=== PATIENT | female | born 1960 | race Caucasian/White ===

== ENCOUNTER 2016-10-08 21:49 | Inpatient (IN) | payer BC ==
[2016-10-08] MEDS ORDERED: NOREPINEPHRINE BITARTRATE INJ/PF 4 MG/4 ML SDV IV ONE (21:56)
[2016-10-08] MEDS ORDERED: NORMAL SALINE 1000 ML 2,000 ML IV ONE (22:17)
[2016-10-08 22:47] LABS: ABSOLUTE EOSINOPHILS # (AUTO) 0.1 10^3/uL (0.0-0.6); ABSOLUTE LYMPHOCYTES (AUTO) 1.5 10^3/uL (0.5-4.7); ABSOLUTE MONOCYTES (AUTO) 0.6 10^3/uL (0.1-1.4); ABSOLUTE NEUT (AUTO) 6.5 10^3/uL (1.7-8.2); BASOPHILS % (AUTO) 0.4 % (0-2); EOSINOPHILS % (AUTO) 1.4 % (0-6); HEMATOCRIT 30.4 % (36.0-47.0); HEMOGLOBIN 10.2 g/dL (12.0-15.5); HGB HCT DIFFERENCE 0.2; LYMPHOCYTES % (AUTO) 17.6 % (13-45); MEAN CORPUSCULAR HEMOGLOBIN 27.9 pg (27.0-33.4); MEAN CORPUSCULAR HGB CONC 33.7 g/dL (32.0-36.0); MEAN CORPUSCULAR VOLUME 83 fl (80-97); MONOCYTES % (AUTO) 7.1 % (3-13); RED BLOOD COUNT 3.67 10^6/uL (3.72-5.28); RED CELL DISTRIBUTION WIDTH 13.6 % (11.5-14.0); SEGMENTED NEUTROPHILS % (AUTO) 73.5 % (42-78); VENOUS BLOOD BASE EXCESS -4.6 mmol/L; VENOUS BLOOD HCO3 21.1 mmol/L (20-32); VENOUS BLOOD PCO2 41.6 mmHg (35-63); VENOUS BLOOD PH 7.32 (7.30-7.42); WHITE BLOOD COUNT 8.8 10^3/uL (4.0-10.5)
[2016-10-08] MEDS ORDERED: MIDAZOLAM 2 MG/2 ML INJ IV ONE (22:47)
--- NOTE | 2016-10-08 22:47 | ER Document Report ---
ED General - General Stated Complaint: POSSIBLE OVERDOSE Cannot obtain history due to: Intoxicated, Unstable vital signs, Altered mental status Notes: Patient is a 55-year-old female with past medical history of multiple psychiatric illnesses who presents by EMS after apparently overdosing on multiple of her medications. No history can be obtained beyond EMS stating that patient probably told her family that she took "4 times as much of her medication" that she was supposed to take. Was noted to be acting in an unusual fashion so EMS was contacted. No additional meaningful history can be obtained at time of arrival is patient is hypotensive and unable to provide meaningful answers secondary to encephalopathy. TRAVEL OUTSIDE OF THE [place] IN LAST 30 DAYS: No - Related Data Allergies/Adverse Reactions: aspirin Allergy (Verified 10/09/16 02:41) Penicillins Allergy (Verified 10/09/16 02:41) Past Medical History - General Information source: Emergency Med Personnel - Social History Smoking Status: Unknown if Ever Smoked Frequency of alcohol use: None Drug Abuse: None Lives with: Family Family History: Reviewed & Not Pertinent Review of Systems - Review of Systems -: Yes ROS unobtainable due to patient's medical condition Physical Exam - Vital signs Vitals: Temp Pulse Resp BP Pulse Ox 96.0 F L 65 12 95/79 L 99 10/08/16 21:50 10/08/16 21:50 10/08/16 21:50 10/08/16 21:50 10/08/16 21:50 Interpretation: Hypotensive Notes: PHYSICAL EXAMINATION: GENERAL: Disheveled, appears older than stated age. Somnolent. GCS 9 HEAD: Atraumatic, normocephalic. EYES: Pupils equal round and reactive to light, extraocular movements intact, sclera anicteric, conjunctiva are normal. ENT: nares patent, oropharynx clear without exudates. Dry mucous membranes NECK: Normal range of motion, supple without lymphadenopathy LUNGS: Breath sounds clear to auscultation bilaterally and equal. No wheezes rales or rhonchi. HEART: Regular rate and rhythm without murmurs ABDOMEN: Soft, nontender, normoactive bowel sounds. No guarding, no rebound. No masses appreciated. EXTREMITIES: no pitting or edema. No cyanosis. NEUROLOGICAL: Lethargic but does wake easily to sternal rub. No focal neurological deficits. Moves all extremities spontaneously and on command. PSYCH: Lethargic, no meaningful answers to questions. SKIN: Warm, Dry, normal turgor, no rashes or lesions noted. Course - Re-evaluation Re-evalutation: 10/08/16 22:00 Patient presents altered but does respond to noxious stimuli in all extremities and does speak. She is protecting her airway. She is initially hypotensive systolics in the upper 90s. She has no additional physical exam findings. No response to 2 mg of IV Narcan. She has multiple prescription bottles with her and it appears that she has had a polysubstance overdose. Initial EKG shows a mild QT prolongation but is otherwise unremarkable. Patient had 1 plan axis at time of arrival. Very difficult to find additional IV access so a left external jugular was placed by me. She now has 2 points of 18-gauge access. Providing a 2 L fluid bolus for her mild hypotension. No indication for taking her airway at this time. She does not yet require norepinephrine. A pill count shows the patient likely did not ingest a significant amount of propranolol which should be my primary concern. She has more pills she should if she was taking them as directed but it is still uncertain exactly how much she actually took. She will require frequent reassessments given her hypotension, altered mental status, and undifferentiated toxicologic ingestion 10/08/16 22:47 Patient is much more awake at this time although continues to be confused, combative. She is fighting against nursing staff and requiring soft restraints. A small dose of Versed will be given is safe given the patient's blood pressures are now running in the low 100s systolic. 10/08/16 23:22 Patient continues to be agitated, combative, requiring soft restraints to prevent her from pulling off IVs and her Schneider catheter. Continues to protect her airway. 5 mg of IV Versed has been administered as her systolic blood pressures remain in the 100s. Her laboratories are demonstrating significant hypo-ketonemia and hypocalcemia. Will begin magnesium, potassium, and calcium gluconate. 10/09/16 00:33 Patient continues to be agitated, she's been given a total 4 mg of IV haloperidol. Blood pressures continue to be stable range in the low 1 teens. She is not tachycardic. Will repeat an EKG. 10/09/16 01:03 Patient continues to be agitated. Will give another 5 mg of IV Valium. Repeat Tylenol level pending at 2 AM. I have discussed this case with Dr. Yuan who is the admitting hospitalist has agreed to accept the patient in admission at this time. - Vital Signs Vital signs: Temp Pulse Resp BP Pulse Ox 94.4 F L 69 12 107/69 99 10/09/16 03:01 10/08/16 22:02 10/08/16 22:02 10/09/16 03:01 10/09/16 03:01 - Laboratory Result Diagrams: 10/08/16 22:30 10/09/16 01:55 Laboratory results interpreted by me: 10/08/16 10/08/16 10/08/16 22:20 22:30 22:30 RBC 3.67 L Hgb 10.2 L Hct 30.4 L Potassium 2.8 L* Chloride 108 H Carbon Dioxide 19 L Glucose Lactic Acid Calcium 6.7 L* Magnesium Total Protein 4.7 L Albumin 2.7 L Urine Protein 30 H Urine Blood MODERATE H Urine Bilirubin SMALL H Ur Leukocyte Esterase TRACE H Salicylates < 1.0 L 10/08/16 10/08/16 10/09/16 22:30 22:30 01:55 RBC Hgb Hct Potassium 2.9 L* Chloride 111 H Carbon Dioxide 19 L Glucose 154 H Lactic Acid < 0.5 L Calcium 8.2 L Magnesium 1.5 L Total Protein Albumin 2.6 L Urine Protein Urine Blood Urine Bilirubin Ur Leukocyte Esterase Salicylates - EKG Interpretation by Me Additional EKG results interpreted by me: 10/09/16 03:29 Normal sinus rhythm. Rate 65. No ST elevations or depressions. QTC prolonged at 508. Critical Care Note - Critical Care Note Total time excluding time spent on procedures (mins): 45 Comments: Critical care time spent obtaining history from patient or surrogate, discussions with consultants, development of treatment plan with patient or surrogate, evaluation of patient's response to treatment, examination of patient , ordering and performing treatments and interventions, ordering and review of laboratory studies, re-evaluation of patient's condition, ordering and review of radiographic studies and review of old charts Discharge - Discharge Clinical Impression: Encephalopathy acute, Polysubstance overdose Altered mental status Qualifiers: Altered mental status type: unspecified Qualified Code(s): R41.82 - Altered mental status, unspecified Condition: Critical Disposition: ADMITTED INPATIENT Admitting Provider: Jeevan Yuan Unit Admitted: ICU
[2016-10-08] MEDS ORDERED: MIDAZOLAM 2 MG/2 ML INJ ONE (22:49)
[2016-10-08 22:50] LABS: APPEARANCE,URINE CLOUDY; BILIRUBIN,URINE SMALL (NEGATIVE); GLUCOSE, URINE NEGATIVE (NEGATIVE); KETONES,URINE NEGATIVE (NEGATIVE); LEUKOCYTE ESTERASE,URINE TRACE (NEGATIVE); NITRITE,URINE NEGATIVE (NEGATIVE); PROTEIN,URINE 30 mg/dL (NEGATIVE); URINE SPECIFIC GRAVITY 1.025; UROBILINOGEN,URINE NEGATIVE mg/dL (<2.0)
[2016-10-08 22:53] LABS: URINE BARBITURATES SCREEN NEGATIVE; URINE METHADONE SCREEN NEGATIVE; URINE OPIATES LOW NEGATIVE; URINE PHENCYCLIDINE SCREEN NEGATIVE
[2016-10-08 23:06] LABS: ALANINE AMINOTRANSFERASE 30 U/L (9-52); ALBUMIN 2.7 g/dL (3.5-5.0); ALKALINE PHOSPHATASE 75 U/L (38-126); ANION GAP 11 (5-19); ASPARTATE AMINO TRANSFERASE 15 U/L (14-36); BILIRUBIN,DIRECT 0.1 mg/dL (0.0-0.4); BILIRUBIN,TOTAL 0.4 mg/dL (0.2-1.3); BLOOD UREA NITROGEN 9 mg/dL (7-20); CARBON DIOXIDE 19 mmol/L (22-30); CHLORIDE 108 mmol/L (98-107); CREATININE RESULT 0.75 mg/dL (0.52-1.25); GLUCOSE 101 mg/dL (75-110); SODIUM 137.6 mmol/L (137-145); TOTAL PROTEIN 4.7 g/dL (6.3-8.2)
[2016-10-08 23:11] LABS: ALCOHOL < 10 mg/dL (NONE DETECTED)
[2016-10-08 23:13] LABS: CALCIUM 6.7 mg/dL (8.4-10.2)
[2016-10-08 23:14] LABS: POTASSIUM 2.8 mmol/L (3.6-5.0)
[2016-10-08] MEDS ORDERED: DIAZEPAM INJ 10 MG/2 ML DISP.SYRIN ONE (23:18)
[2016-10-08] MEDS ORDERED: CALCIUM GLUCONATE 1000 MG/10 ML INJ IV ONE (23:21)
[2016-10-08] MEDS ORDERED: DIAZEPAM INJ 10 MG/2 ML DISP.SYRIN IV ONE (23:22)
[2016-10-08] MEDS ORDERED: DEXTROSE 5%-LACTATED RINGERS 1,000 ML IV ONE (23:23)
[2016-10-08] MEDS ORDERED: HALOPERIDOL LACTATE INJ 5 MG/1 ML VIAL ONE (23:28)
[2016-10-09] MEDS: POTASSI CL 20 MEQ/50 ML RIDER 50 ML IV SCH ×3 (00:01→04:31)
[2016-10-09] MEDS: MAGNESIUM SULFATE/D5W 100 ML IV SCH ×2 (00:14→01:31)
[2016-10-09] MEDS ORDERED: HALOPERIDOL LACTATE INJ 5 MG/1 ML VIAL ONE (00:17)
[2016-10-09] MEDS ORDERED: DIAZEPAM INJ 10 MG/2 ML DISP.SYRIN IV ONE (01:02)
[2016-10-09 02:20] LABS: ALBUMIN 2.6 g/dL (3.5-5.0); ANION GAP 9 (5-19); BLOOD UREA NITROGEN 9 mg/dL (7-20); CALCIUM 8.2 mg/dL (8.4-10.2); CARBON DIOXIDE 19 mmol/L (22-30); CHLORIDE 111 mmol/L (98-107); CREATINE KINASE 62 U/L (30-135); CREATININE RESULT 0.64 mg/dL (0.52-1.25); GLUCOSE 154 mg/dL (75-110); MAGNESIUM 2.2 mg/dL (1.6-2.3); SODIUM 138.8 mmol/L (137-145)
[2016-10-09 02:22] LABS: POTASSIUM 2.9 mmol/L (3.6-5.0)
[2016-10-09] MEDS ORDERED: RINGERS SOLUTION,LACTATED 1,000 ML IV ONE (02:29)
[2016-10-09 02:33] LABS: CREATINE KINASE MB < 0.22 ng/mL (<4.55); TROPONIN I < 0.012 ng/mL
[2016-10-09] MEDS ORDERED: DEXTROSE 40% GEL 15 GM TUBE PO PRN ×2 (02:33)
[2016-10-09] MEDS ORDERED: GLUCAGON,HUMAN RECOMB 1 MG INJ SUBCUT PRN (02:33)
[2016-10-09] MEDS ORDERED: DEXTROSE 50%-WATER 25 GM/50 ML DISP.SYRIN IV PRN ×2 (02:33)
[2016-10-09] MEDS ORDERED: POTASSI CL 20 MEQ/50 ML RIDER 20 MEQ/50 ML RTUPB IV ONE (03:00)
--- NOTE | 2016-10-09 03:05 | PDOC H&P ---
History of Present Illness Admission Date/PCP: 10/09/16 02:07 PCP ?? Patient complains of: possible OD History of Present Illness: YUE CHANDLER is a 55 year old female with reported underlying schizophrenia who presents to the emergency room for evaluation of above complaint. Patient has been discussed with emergency room physician who evaluated the patient. Patient is quite somnolent, likely from multiple medications given earlier for agitation, and is able to provide no history whatsoever in terms of acute or chronic events, review of systems, personal habits, family history, etc. No friends or family are present. No Old inpatient records available for review. Approximately 9 PM on the , according to ER physician and nursing staff discussion with EMS, patient reportedly told family that she took "4 times" as much of her home medications as she should. EMS was called. Was given 0.4 mg of intravenous Narcan by EMS, and subsequently 2 mg of IV Narcan by emergency room physician, with little if any effect either time. Multiple prescription bottles were examined, according to the emergency room physician, with no obvious evidence of overdose of these medications after pill count. She was initially fairly somnolent, and somewhat hypo-tensive, with blood pressure in the low to upper 90s. Became more awake and somewhat agitated after external jugular IV line was inserted and patient was given IV fluid. Has since been quite agitated intermittently, requiring soft restraints along with medications. Short time ago, her emergency room nurse, Derek, stated that briefly came to the emergency room and made a comment that patient "does this all the time." even reportedly asked if her potassium and calcium were low. Reportedly some suspicion on his part for possible suicide attempt. He stayed only briefly in the emergency room, and was not present during my time there. No reported history of fever, either prior to emergency room arrival, or since. . Laboratory results are listed in [employer] and are reviewed. X-ray pending. EKG reviewed. No old EKG available for comparison. Social history/personal habits: . Reportedly has a child. No further information available this point in time. Allergies/adverse reactions are listed in [employer] and are reviewed. Home medications Home medications initially autopopulated into [email or web address] may not accurately reflect patient's true medications, dosages, and/or frequencies. computed tomography technologist to reconcile medications. Home prescriptions include propranolol and Effexor. Other medications also. Unfortunately, patient obviously unable to provide any information concerning medications/dosages/frequencies. REVIEW OF SYSTEMS: See history and present illness.No further information available this point in time. PHYSICAL EXAMINATION: Neither height nor weight are recorded on the chart. Temperature not recorded on the chart; skin feels normothermic. Blood pressure 95/59, with patient having received 3 L of crystalloid, along with IV fluid during infusion of 1 potassium rider, 2 magnesium riders, and 3 calcium riders. Pulse 65 and regular. 96% saturation on 4 L oxygen per nasal cannula. Respirations are 12 and unlabored. Obese somewhat chronically ill-appearing female who nevertheless appears approximately her stated age. Asleep, but does open eyes slightly when her name is called in a slightly raised voice. However, does not become any more alert, and quickly falls back asleep. Maintaining her airway well. Skin is warm and dry. No grossly obvious evidence of rash in areas of skin examined. No subcutaneous nodules palpated. ENT: Hearing difficult to evaluate due to her current status. No Rowland sign. Eyes: No scleral icterus. Pupils equal and reactive to light at 4 mm. Bruning conjunctivae. No raccoon eyes. Neck is nontender to gentle palpation. Midline trachea. No palpable thyroid nodule mass enlargement or tenderness. Lymphatic: No palpable cervical or clavicular nodes. Neck and lymphatic exams limited by patient body habitus. Psychiatric: Not able to be adequately evaluated due to her current status. Lungs: Auscultation reveals equal breath sounds bilaterally. No use of accessory respiratory muscles. Mild brief expiratory wheezing on the right; breath sounds are clear on the left. Cardiovascular: Heart regular rate and rhythm, without gallop murmur or rub. No carotid or abdominal aortic bruits. No ankle or pedal edema. palpable dorsalis pedis pulses. Abdomen: soft, somewhat obese, nontender with positive bowel sounds. Unable to adequately evaluate abdomen for masses or organomegaly due to body habitus. Extremities: Upper and lower extremities are warm and dry. No extremity tenderness to compression. No grossly obvious visual evidence of extremity swelling. Gentle manipulation of upper and lower extremities fails to reveal any obvious evidence of injury or instability to involved major joints, although range of motion is limited by soft restraints in place. Palpation of cranium, clavicles, thorax, upper and lower extremities, and pelvis fails to reveal any obvious evidence of injury or instability. Neurologic: Patellar reflexes absent. Absent Babinski. Light touch can't be adequately evaluated due to her current status.. No nystagmus. No rigidity. No ankle clonus. Does slightly marketing clerk fingers symmetrically and symmetrically slightly move toes upon request. Past Medical History Past Medical History: Past medical history extremely limited due to her current status. See history and present illness. Psychiatric Medical History: Reports: Other - Reported schizophrenia Past Surgical History Past Surgical History: Uncertain. Social History Information Source: Emergency Med Personnel, [facility] Records Smoking Status: Unknown if Ever Smoked - Advance Directive Resuscitation Status: Full Code Surrogate healthcare decision maker:: Uncertain; likely her . Family History Parental Family History Reviewed: No - no information available this point in time. Children Family History Reviewed: No - no information available this point in time. Sibling(s) Family History Reviewed.: No - no information available this point in time. Medication/Allergy Home Medications: Divalproex Sodium [Divalproex Sodium ER] 1,000 mg PO QPM 10/09/16 Fluoxetine HCl [Prozac 20 mg Capsule] 60 mg PO DAILY 10/09/16 [place]-3 Fatty Acids/Fish Oil [Fish Oil 1,000 mg Capsule] 1 each PO BID 10/09/16 Propranolol HCl [Inderal 40 mg Tablet] 40 mg PO Q12 10/09/16 Quetiapine Fumarate [Seroquel] 200 mg PO DAILY 10/09/16 Quetiapine Fumarate [Seroquel] 600 mg PO QHS 10/09/16 Ranitidine HCl [Zantac 150 mg Tablet] 150 mg PO BIDP PRN 10/09/16 Venlafaxine HCl [Effexor] 100 mg PO DAILY 10/09/16 Venlafaxine HCl [Effexor] 200 mg PO QHS 10/09/16 Ciprofloxacin HCl [Cipro 500 mg Tablet] 500 mg PO BID #22 tablet 10/11/16 Clindamycin HCl 300 mg PO Q6H #44 capsule 10/11/16 Allergies/Adverse Reactions: aspirin Allergy (Verified 10/09/16 02:41) Penicillins Allergy (Verified 10/09/16 02:41) Assessment & Plan - Diagnosis (1) Abnormal urinalysis Is this a current diagnosis for this admission?: YesPlan: Blood and urine cultures. Will forego antibiotics at this point in time. (2) Anemia Qualifiers: Anemia type: unspecified type Qualified Code(s): D64.9 - Anemia, unspecified Is this a current diagnosis for this admission?: YesPlan: Follow-up CBC with differential. No need for transfusion at present time. (3) Encephalopathy acute Is this a current diagnosis for this admission?: YesPlan: No specific etiology available this point in time, but suspect probably polysubstance overdose/abuse. Portable chest x-ray. CT scan of brain without contrast. Suicide precautions. Psychiatric consult. Intensive care unit admission. Knee high SCDs for DVT prophylaxis, [along with subcutaneous Lovenox . Time spent in evaluation and management of patient: 53 minutes. (4) Hypocalcemia Is this a current diagnosis for this admission?: YesPlan: Replacement as needed and follow-up chemistry. (5) Hypokalemia Is this a current diagnosis for this admission?: YesPlan: Replacement as needed and follow-up chemistry. (6) Hypomagnesemia Is this a current diagnosis for this admission?: YesPlan: Replacement as needed and follow-up chemistry. (7) Hypotension Qualifiers: Hypotension type: unspecified hypotension type Qualified Code(s): I95.9 - Hypotension, unspecified Is this a current diagnosis for this admission?: YesPlan: Perhaps due in part to her propranolol. Continue IV fluids. ICU admission with close monitoring. (8) Polysubstance overdose Qualifiers: Encounter type: initial encounter Injury intent: undetermined intent Qualified Code(s): T50.904A - Poisoning by unspecified drugs, medicaments and biological substances, undetermined, initial encounter Is this a current diagnosis for this admission?: YesPlan: Suspected, with reported suspicion by of suicidal attempt. (9) Schizophrenia Qualifiers: Schizophrenia type: unspecified Qualified Code(s): F20.9 - Schizophrenia, unspecified Is this a current diagnosis for this admission?: YesPlan: Reported. - Inpatient Certification Based on my medical assessment, after consideration of the patient's comorbidities, presenting symptoms, or acuity I expect that the services needed warrant INPATIENT care.: Yes I certify that my determination is in accordance with my understanding of Medicare's requirements for reasonable and necessary INPATIENT services [42 CFR 412.3e].: Yes Medical Necessity: Need Close Monitoring Due to Risk of Patient Decompensation, Need For IV Fluids, Need For Continuous Telemetry Monitoring, Risk of Diagnosis Which Will Require Inpatient Eval/Care/Monitoring Post Hospital Care: D/C or Transfer Summary
[2016-10-09] MEDS ORDERED: HALOPERIDOL LACTATE INJ 5 MG/1 ML VIAL IV PRN (04:04)
[2016-10-09] MEDS: POTASSI CL 20 MEQ/NS 1L 1,000 ML IV PRN ×4 (04:30→21:16)
[2016-10-09] MEDS: ACETAMINOPHEN 650 MG SUPP.RECT PR PRN (05:17)
[2016-10-09 06:37] LABS: ABSOLUTE LYMPHOCYTES (AUTO) 1.5 10^3/uL (0.5-4.7); ABSOLUTE MONOCYTES (AUTO) 0.4 10^3/uL (0.1-1.4); ABSOLUTE NEUT (AUTO) 4.7 10^3/uL (1.7-8.2); BASOPHILS % (AUTO) 0.3 % (0-2); EOSINOPHILS % (AUTO) 0.5 % (0-6); HEMATOCRIT 30.4 % (36.0-47.0); HEMOGLOBIN 10.5 g/dL (12.0-15.5); HGB HCT DIFFERENCE 1.1; LYMPHOCYTES % (AUTO) 22.2 % (13-45); MEAN CORPUSCULAR HEMOGLOBIN 28.5 pg (27.0-33.4); MEAN CORPUSCULAR HGB CONC 34.5 g/dL (32.0-36.0); MEAN CORPUSCULAR VOLUME 83 fl (80-97); MONOCYTES % (AUTO) 5.4 % (3-13); RED BLOOD COUNT 3.68 10^6/uL (3.72-5.28); RED CELL DISTRIBUTION WIDTH 13.8 % (11.5-14.0); SEGMENTED NEUTROPHILS % (AUTO) 71.6 % (42-78); WHITE BLOOD COUNT 6.5 10^3/uL (4.0-10.5)
[2016-10-09 06:55] LABS: ANION GAP 9 (5-19); BLOOD UREA NITROGEN 6 mg/dL (7-20); CALCIUM 8.1 mg/dL (8.4-10.2); CARBON DIOXIDE 22 mmol/L (22-30); CHLORIDE 117 mmol/L (98-107); CREATININE RESULT 0.64 mg/dL (0.52-1.25); GLUCOSE 111 mg/dL (75-110); POTASSIUM 3.8 mmol/L (3.6-5.0)
[2016-10-09] MEDS: ENOXAPARIN SODIUM INJ 40 MG/0.4 ML DISP.SYRIN SUBCUT SCH (08:14)
[2016-10-09] MEDS ORDERED: IMIPENEM/CILASTATIN SODIUM INJ 500 MG VIAL IV SCH (08:15)
[2016-10-09] MEDS: IMIPENEM/CILASTATIN SODIUM 500 MG in NORMAL SALINE 100 ML IV SCH ×3 (09:28→21:16)
--- NOTE | 2016-10-09 21:47 | EKG REPORT ---
SEVERITY:- ABNORMAL ECG - SINUS RHYTHM NONSPECIFIC INTRAVENTRICULAR CONDUCTION DELAY : Confirmed by: Clarice Xavier MD 09-Oct-2016 21:47:15
--- NOTE | 2016-10-09 21:48 | EKG REPORT ---
SEVERITY:- ABNORMAL ECG - SINUS RHYTHM NONSPECIFIC INTRAVENTRICULAR CONDUCTION DELAY MINIMAL ST DEPRESSION, ANTERIOR LEADS : Confirmed by: Clarice Xavier MD 09-Oct-2016 21:48:03
[2016-10-10] MEDS: POTASSI CL 20 MEQ/NS 1L 1,000 ML IV PRN (02:24)
[2016-10-10] MEDS: IMIPENEM/CILASTATIN SODIUM 500 MG in NORMAL SALINE 100 ML IV SCH (02:24)
[2016-10-10] MEDS: ACETAMINOPHEN 650 MG SUPP.RECT PR PRN (03:25)
[2016-10-10 04:43] LABS: HEMATOCRIT 30.2 % (36.0-47.0); HEMOGLOBIN 10.1 g/dL (12.0-15.5); HGB HCT DIFFERENCE 0.1; MEAN CORPUSCULAR HEMOGLOBIN 28.1 pg (27.0-33.4); MEAN CORPUSCULAR HGB CONC 33.6 g/dL (32.0-36.0); MEAN CORPUSCULAR VOLUME 84 fl (80-97); RED BLOOD COUNT 3.62 10^6/uL (3.72-5.28); RED CELL DISTRIBUTION WIDTH 14.3 % (11.5-14.0); WHITE BLOOD COUNT 4.6 10^3/uL (4.0-10.5)
[2016-10-10 04:56] LABS: ANION GAP 11 (5-19); BLOOD UREA NITROGEN 4 mg/dL (7-20); CALCIUM 7.8 mg/dL (8.4-10.2); CARBON DIOXIDE 20 mmol/L (22-30); CHLORIDE 121 mmol/L (98-107); CREATININE RESULT 0.65 mg/dL (0.52-1.25); GLUCOSE 80 mg/dL (75-110); MAGNESIUM 1.8 mg/dL (1.6-2.3); PHOSPHORUS 2.4 mg/dL (2.5-4.5); POTASSIUM 3.9 mmol/L (3.6-5.0); SODIUM 151.6 mmol/L (137-145)
--- NOTE | 2016-10-10 08:05 | PDOC PROGRESS REPORT ---
Subjective Progress Note for:: 10/10/16 Subjective:: Patient is more awake and alert. No reported temperature spikes, respiratory distress, diarrhea, nausea and vomiting. Patient seems to be calm and cooperative. No agitation, restlessness noted. Patient does not remember what happened. Patient complains of facial pressure and headache at times. Minimal sinus congestion. Physical Exam Vital Signs: Temp Pulse Resp BP Pulse Ox 97.5 F 63 18 136/69 H 100 10/09/16 15:59 10/09/16 20:18 10/10/16 06:25 10/10/16 06:25 10/10/16 06:25 Intake & Output 10/09/16 10/10/16 10/11/16 06:59 06:59 06:59 Intake Total 4749 Output Total 1300 2305 Balance -1300 2444 Weight 79.3 kg General appearance: PRESENT: no acute distress, cooperative, obese Head exam: PRESENT: normocephalic Eye exam: PRESENT: conjunctiva pale, EOMI Mouth exam: PRESENT: moist, neck supple Neck exam: ABSENT: JVD Respiratory exam: PRESENT: clear to auscultation dontae. ABSENT: rhonchi, wheezes Cardiovascular exam: PRESENT: RRR. ABSENT: gallop GI/Abdominal exam: PRESENT: soft. ABSENT: distended, tenderness Extremities exam: ABSENT: pedal edema Neurological exam: PRESENT: alert, awake Skin exam: PRESENT: dry, warm. ABSENT: cyanosis Results Laboratory Results: 10/10/16 04:15 10/10/16 04:15 10/10/16 10/10/16 04:15 04:15 WBC 4.6 RBC 3.62 L Hgb 10.1 L Hct 30.2 L MCV 84 MCH 28.1 MCHC 33.6 RDW 14.3 H Plt Count 156 Sodium 151.6 H Potassium 3.9 Chloride 121 H Carbon Dioxide 20 L Anion Gap 11 BUN 4 L Creatinine 0.65 Est GFR ( Amer) > 60 Est GFR (Non-Af Amer) > 60 Glucose 80 Calcium 7.8 L Phosphorus 2.4 L Magnesium 1.8 Impressions: Chest X-Ray 10/09/16 00:00 IMPRESSION: Mild pulmonary edema pattern. Possible underlying mild chronic interstitial lung disease. Head CT 10/09/16 00:00 IMPRESSION: No acute intracranial findings. Mild pansinusitis with small air- fluid levels suggesting an acute inflammatory component. Assessment & Plan - Diagnosis (1) Encephalopathy acute Is this a current diagnosis for this admission?: Yes (2) Polysubstance overdose Qualifiers: Encounter type: initial encounter Injury intent: undetermined intent Qualified Code(s): T50.904A - Poisoning by unspecified drugs, medicaments and biological substances, undetermined, initial encounter Is this a current diagnosis for this admission?: Yes (3) Pansinusitis Qualifiers: Chronicity: unspecified Qualified Code(s): J32.4 - Chronic pansinusitis Is this a current diagnosis for this admission?: Yes (4) UTI (urinary tract infection) Qualifiers: Urinary tract infection type: site unspecified Hematuria presence: without hematuria Qualified Code(s): N39.0 - Urinary tract infection, site not specified Is this a current diagnosis for this admission?: Yes (5) Abnormal chest x-ray Is this a current diagnosis for this admission?: Yes (6) Hypocalcemia Is this a current diagnosis for this admission?: Yes (7) Hypokalemia Is this a current diagnosis for this admission?: Yes (8) Hypomagnesemia Is this a current diagnosis for this admission?: Yes (9) Hypotension Qualifiers: Hypotension type: unspecified hypotension type Qualified Code(s): I95.9 - Hypotension, unspecified Is this a current diagnosis for this admission?: Yes (10) Anemia of chronic disease Is this a current diagnosis for this admission?: Yes (11) Schizophrenia Qualifiers: Schizophrenia type: unspecified Qualified Code(s): F20.9 - Schizophrenia, unspecified Is this a current diagnosis for this admission?: Yes - Time Time Spent with patient: 25-34 minutes - Plan Summary Plan Summary: We will change IV fluid to half-normal saline. Discontinue potassium supplements. Discontinue Primaxin and changed to intravenous ciprofloxacin. Consult psychiatry for the overdose. Monitor electrolytes. We will do a follow -up chest x-ray PA and lateral. Transfer to telemetry floor. Follow cultures.
[2016-10-10] MEDS: ENOXAPARIN SODIUM INJ 40 MG/0.4 ML DISP.SYRIN SUBCUT SCH (08:20)
[2016-10-10] MEDS: 1/2 NORMAL SALINE 1,000 ML IV PRN ×2 (08:30→21:48)
[2016-10-10] MEDS: CIPROFLOXACIN 400 MG/D5W RTU 400 MG/200 ML RTUPB IV SCH ×2 (09:51→21:48)
[2016-10-11 04:43] LABS: ANION GAP 11 (5-19); BLOOD UREA NITROGEN 4 mg/dL (7-20); CALCIUM 8.4 mg/dL (8.4-10.2); CARBON DIOXIDE 26 mmol/L (22-30); CHLORIDE 109 mmol/L (98-107); CREATININE RESULT 0.66 mg/dL (0.52-1.25); GLUCOSE 92 mg/dL (75-110); POTASSIUM 3.6 mmol/L (3.6-5.0); SODIUM 146.2 mmol/L (137-145)
[2016-10-11] MEDS: ENOXAPARIN SODIUM INJ 40 MG/0.4 ML DISP.SYRIN SUBCUT SCH (08:19)
[2016-10-11] MEDS: CIPROFLOXACIN 400 MG/D5W RTU 400 MG/200 ML RTUPB IV SCH (09:41)
--- NOTE | 2016-10-11 17:25 | PSYCHOLOGICAL NOTE ---
Psych Note - Psych Note Psych Note: Patient is a 55-year-old female who initially presented to [facility] ER with altered mental status and was subsequently admitted to [facility] in ICU. Patient presented as a possible overdose with unknown intent/etiology. Patient today does deny to medical staff that it was a suicide attempt. Patient has no prior episodes per her medical record of psychiatric episodes at [facility]. Patient's home medications were recorded to include Depakote, Seroquel, Effexor, and Prozac. Patient states she is ready to go home. She reports when she and her moved down to [place] from [place], her IDD niece came with them and she has been caring for her and patient's sister as well. Patient states sometimes it is just hard. Patient becomes quite tearful and states she just couldn't do it anymore. She states she just needs help. She states she took a whole bunch of stuff, to include 4 days worth of her prescribed medications, Trylenol, and 9 Valium tabs. She states she does not know dosage. Patient states she is followed by the [facility] and sees Dr. Craft. She states she was not complaint with her medications, due to the busy schedule of taking other's to their appointments. Patient states she is not allowed to say anything bad (per her ) because her sister is wheelchair bound, and her niece is special needs. She states her family is not supportive of her needs, and made comments along the lines of, "oh so it's all Teetee's fault you did this." Patient reports prior suicide attempts, most recent was at least 5 years ago. She states each time she overdosed and her stomach would be pumped, etc. She does report more than 1 inpatient psychiatric hospitalization at the [facility], most recent 5 or so years ago. Patient is extremely tearful. Patient states today, she wants to by suicide. Patient's , [place] [phone]: [place] [facility] Unspecified Bipolar Disorder Patient is recommended for IVC. She is considered a danger to herself as she states she wants to by suicide today, and intended on doing so when she overdosed on the medications. I consulted with Dr. Carr in regards to the care and management of this patient. Hospitalist made aware and in agreement with disposition. Will track. Thank you timely for this consult.
--- NOTE | 2016-10-11 17:54 | PDOC PROGRESS REPORT ---
Subjective Progress Note for:: 10/11/16 Subjective:: Patient denies any chills or fever, shortness of breath or cough. Denies diarrhea, nausea vomiting or abdominal pain. Patient admits having suicidal attempt during the time of admission, but denied suicidal ideations earlier today. Psychiatry consulted and evaluated the patient, placed on involuntary commitment.. Physical Exam Vital Signs: Temp Pulse Resp BP Pulse Ox 98.1 F 66 18 121/75 99 10/11/16 08:00 10/11/16 14:00 10/11/16 14:00 10/11/16 14:00 10/11/16 14:00 Intake & Output 10/10/16 10/11/16 10/12/16 06:59 06:59 06:59 Intake Total 4749 3154 337 Output Total 2309 4545 2650 Balance 9612 -4653 -8930 General appearance: PRESENT: no acute distress, cooperative Head exam: PRESENT: normocephalic Eye exam: PRESENT: EOMI Mouth exam: PRESENT: moist, neck supple Neck exam: ABSENT: JVD Respiratory exam: PRESENT: clear to auscultation dontae Cardiovascular exam: PRESENT: RRR. ABSENT: gallop GI/Abdominal exam: PRESENT: soft. ABSENT: distended, tenderness Extremities exam: ABSENT: pedal edema Neurological exam: PRESENT: alert, awake, oriented to situation Psychiatric exam: ABSENT: agitated Focused psych exam: ABSENT: restlessness Skin exam: PRESENT: dry, warm. ABSENT: cyanosis Results Laboratory Results: 10/10/16 04:15 10/11/16 04:12 10/11/16 04:12 Sodium 146.2 H Potassium 3.6 Chloride 109 H Carbon Dioxide 26 Anion Gap 11 BUN 4 L Creatinine 0.66 Est GFR ( Amer) > 60 Est GFR (Non-Af Amer) > 60 Glucose 92 Calcium 8.4 10/09/16 03:35 Catheterized Urine Urine Culture - Final NO GROWTH 2 DAYS Impressions: Head CT 10/09/16 00:00 IMPRESSION: No acute intracranial findings. Mild pansinusitis with small air- fluid levels suggesting an acute inflammatory component. Chest X-Ray 10/11/16 06:00 IMPRESSION: Right lower lobe pneumonia or aspiration. Small pleural effusions. Assessment & Plan - Diagnosis (1) Encephalopathy acute Is this a current diagnosis for this admission?: Yes (2) Polysubstance overdose Qualifiers: Encounter type: initial encounter Injury intent: undetermined intent Qualified Code(s): T50.904A - Poisoning by unspecified drugs, medicaments and biological substances, undetermined, initial encounter Is this a current diagnosis for this admission?: Yes (3) Pneumonia Qualifiers: Pneumonia type: aspiration pneumonia Aspiration pneumonia type: unspecified Laterality: right Lung location: lower lobe of lung Qualified Code(s): J69.0 - Pneumonitis due to inhalation of food and vomit Is this a current diagnosis for this admission?: Yes (4) Pansinusitis Qualifiers: Chronicity: unspecified Qualified Code(s): J32.4 - Chronic pansinusitis Is this a current diagnosis for this admission?: Yes (5) Abnormal chest x-ray Is this a current diagnosis for this admission?: Yes (6) Hypocalcemia Is this a current diagnosis for this admission?: Yes (7) Hypokalemia Is this a current diagnosis for this admission?: Yes (8) Hypomagnesemia Is this a current diagnosis for this admission?: Yes (9) Hypotension Qualifiers: Hypotension type: unspecified hypotension type Qualified Code(s): I95.9 - Hypotension, unspecified Is this a current diagnosis for this admission?: Yes (10) Anemia of chronic disease Is this a current diagnosis for this admission?: Yes (11) Schizophrenia Qualifiers: Schizophrenia type: unspecified Qualified Code(s): F20.9 - Schizophrenia, unspecified Is this a current diagnosis for this admission?: Yes - Time Time Spent with patient: 25-34 minutes - Plan Summary Plan Summary: Continue ciprofloxacin. Add Clindamycin. As x-ray shows infiltrate in the right lower lobe. IVC as per psychiatry recommendation. Papers were completed.
[2016-10-11] MEDS: CLINDAMYCIN HCL 150 MG CAPSULE PO SCH ×2 (18:58→22:52)
[2016-10-11] MEDS: BUSPIRONE HCL 10 MG TABLET PO SCH (22:30)
[2016-10-11] MEDS: CIPROFLOXACIN HCL 500 MG TABLET PO SCH (22:30)
[2016-10-11] MEDS: QUETIAPINE FUMARATE 100 MG TABLET PO SCH (22:31)
[2016-10-12] MEDS: CLINDAMYCIN HCL 150 MG CAPSULE PO SCH ×4 (06:15→23:27)
[2016-10-12] MEDS: ENOXAPARIN SODIUM INJ 40 MG/0.4 ML DISP.SYRIN SUBCUT SCH (07:44)
--- NOTE | 2016-10-12 08:39 | PDOC PROGRESS REPORT ---
Subjective Progress Note for:: 10/12/16 Subjective:: Patient denies having shortness of breath at the moment. She reports having shortness of breath a few days ago, no nausea or vomiting. No chills or fever. Denies any chest pain or shortness of breath at the moment. Had some loose stools twice but not at the moment. Patient reportedly suicidal yesterday afternoon and was involuntarily committed. No reported agitation or restlessness. Physical Exam Vital Signs: Temp Pulse Resp BP Pulse Ox 97.7 F 66 16 137/76 H 96 10/12/16 07:57 10/12/16 07:57 10/12/16 07:57 10/12/16 07:57 10/12/16 07:57 Intake & Output 10/11/16 10/12/16 10/13/16 06:59 06:59 06:59 Intake Total 3154 1301 Output Total 4550 3900 Balance -1396 -2599 General appearance: PRESENT: no acute distress, cooperative Head exam: PRESENT: normocephalic Eye exam: PRESENT: EOMI Mouth exam: PRESENT: moist, neck supple Neck exam: ABSENT: JVD Respiratory exam: PRESENT: clear to auscultation dontae. ABSENT: rhonchi, wheezes Cardiovascular exam: PRESENT: RRR. ABSENT: gallop GI/Abdominal exam: PRESENT: normal bowel sounds, soft. ABSENT: distended, tenderness Extremities exam: PRESENT: other - Trace pretibial edema Neurological exam: PRESENT: alert, awake Psychiatric exam: ABSENT: agitated, anxious Focused psych exam: ABSENT: restlessness Skin exam: PRESENT: dry, warm. ABSENT: cyanosis Results Laboratory Results: 10/10/16 04:15 10/11/16 04:12 10/09/16 03:35 Catheterized Urine Urine Culture - Final NO GROWTH 2 DAYS Impressions: Head CT 10/09/16 00:00 IMPRESSION: No acute intracranial findings. Mild pansinusitis with small air- fluid levels suggesting an acute inflammatory component. Chest X-Ray 10/11/16 06:00 IMPRESSION: Right lower lobe pneumonia or aspiration. Small pleural effusions. Assessment & Plan - Diagnosis (1) Encephalopathy acute Is this a current diagnosis for this admission?: Yes (2) Polysubstance overdose Qualifiers: Encounter type: initial encounter Injury intent: undetermined intent Qualified Code(s): T50.904A - Poisoning by unspecified drugs, medicaments and biological substances, undetermined, initial encounter Is this a current diagnosis for this admission?: Yes (3) Pneumonia Qualifiers: Pneumonia type: aspiration pneumonia Aspiration pneumonia type: unspecified Laterality: right Lung location: lower lobe of lung Qualified Code(s): J69.0 - Pneumonitis due to inhalation of food and vomit Is this a current diagnosis for this admission?: Yes (4) Pansinusitis Qualifiers: Chronicity: unspecified Qualified Code(s): J32.4 - Chronic pansinusitis Is this a current diagnosis for this admission?: Yes (5) Abnormal chest x-ray Is this a current diagnosis for this admission?: Yes (6) Hypocalcemia Is this a current diagnosis for this admission?: Yes (7) Hypokalemia Is this a current diagnosis for this admission?: Yes (8) Hypomagnesemia Is this a current diagnosis for this admission?: Yes (9) Hypotension Qualifiers: Hypotension type: unspecified hypotension type Qualified Code(s): I95.9 - Hypotension, unspecified Is this a current diagnosis for this admission?: Yes (10) Anemia of chronic disease Is this a current diagnosis for this admission?: Yes (11) Schizophrenia Qualifiers: Schizophrenia type: unspecified Qualified Code(s): F20.9 - Schizophrenia, unspecified Is this a current diagnosis for this admission?: Yes - Time Time Spent with patient: 25-34 minutes - Plan Summary Plan Summary: The patient is involuntarily committed for suicidal ideations. Continue sitter. Likely develop aspiration pneumonia when unresponsive. WBC normal and patient is afebrile, continue oral antibiotics. Seroquel, Prozac, BuSpar, Depakote ordered as per psychiatry recommendation. Continue other medication and supportive care. Continue sitter. Out of bed with physical therapy.
[2016-10-12] MEDS: FLUOXETINE HCL 20 MG CAPSULE PO SCH (09:08)
[2016-10-12] MEDS: CIPROFLOXACIN HCL 500 MG TABLET PO SCH ×2 (09:08→21:43)
[2016-10-12] MEDS: DIVALPROEX SODIUM 500 MG TAB.SR.24H PO SCH ×2 (09:08→18:56)
[2016-10-12] MEDS: QUETIAPINE FUMARATE 100 MG TABLET PO SCH (21:43)
[2016-10-12] MEDS: BUSPIRONE HCL 10 MG TABLET PO SCH (21:43)
[2016-10-13] MEDS: CLINDAMYCIN HCL 150 MG CAPSULE PO SCH ×4 (05:48→23:52)
[2016-10-13 05:58] LABS: ANION GAP 12 (5-19); BLOOD UREA NITROGEN 10 mg/dL (7-20); CALCIUM 8.2 mg/dL (8.4-10.2); CARBON DIOXIDE 27 mmol/L (22-30); CHLORIDE 106 mmol/L (98-107); CREATININE RESULT 0.84 mg/dL (0.52-1.25); GLUCOSE 95 mg/dL (75-110); POTASSIUM 3.1 mmol/L (3.6-5.0); SODIUM 144.6 mmol/L (137-145)
[2016-10-13] MEDS ORDERED: POTASSI CL 20 MEQ/50 ML RIDER 20 MEQ/50 ML RTUPB IV SCH (08:45)
[2016-10-13] MEDS: CIPROFLOXACIN HCL 500 MG TABLET PO SCH ×2 (09:54→22:09)
[2016-10-13] MEDS: POTASSIUM CHLORIDE 10 MEQ TABLET.SA PO SCH ×2 (09:54→22:09)
[2016-10-13] MEDS: DIVALPROEX SODIUM 500 MG TAB.SR.24H PO SCH ×2 (09:54→17:30)
[2016-10-13] MEDS: FLUOXETINE HCL 20 MG CAPSULE PO SCH (09:54)
[2016-10-13] MEDS: ENOXAPARIN SODIUM INJ 40 MG/0.4 ML DISP.SYRIN SUBCUT SCH (09:54)
--- NOTE | 2016-10-13 16:44 | PSYCHOLOGICAL NOTE ---
Psych Note - Psych Note Psych Note: Patient is a 55-year-old female who was initially admitted to ICU due to what is now known to be an intentional suicide attempt via overdose. Patient was placed under an involuntary commitment and held for pharmacological intervention and further observation and disposition. Patient today presents with a brighter and smiling affect. Patient states she feels well and would like to go home. Patient states her has visited as often as possible but her sister nor her niece have made an attempt. Discussed with patient and numerous stressors surrounding caring for 2 disabled individuals and attempting to manage her own appointment and medications. Patient reports that while she is returning home to the same stressors that precipitated this event, she plans to make a stronger attempt at caring for herself in addition to others. Patient reports she will make herself and her own mental health appointments a priority. Patient denies wanting to harm herself in any way. Patient reports she feels her medications are working well. Patient reports she would like to return home and engage in some projects around the home to include making jewelry shelves. Patient's : Attempted to contact numerous times to coordinate plan of care and discharge. Patient is alert and oriented. Mood is euthymic with normal/smiling affect. Patient denies suicidal/homicidal ideations, intent, plan, means. Patient denies A/VH; delusions not noted. Thought processes were organized. Conversational speech was WNL for this patient. Attention and focus were fair. Insight, judgment, impulse control were fair. Unspecified bipolar and related disorder. Patient is psychiatrically cleared pending collateral information and confirmation with her . Patient denies suicidal ideations and therefore no longer meets criteria for involuntary commitment per [place] Statute 122C. Will continue to attempt to obtain collateral information and coordinate a plan of care with the [facility].
--- NOTE | 2016-10-13 17:43 | PDOC PROGRESS REPORT ---
Subjective Progress Note for:: 10/13/16 Subjective:: Denies any complaints. Physical Exam Vital Signs: Temp Pulse Resp BP Pulse Ox 97.5 F 55 L 12 109/59 L 97 10/13/16 10:48 10/13/16 10:48 10/13/16 10:48 10/13/16 10:48 10/13/16 10:48 Intake & Output 10/12/16 10/13/16 10/14/16 06:59 06:59 06:59 Intake Total 1301 525 Output Total 3900 1300 Balance -4530 -185 General appearance: PRESENT: no acute distress Eye exam: PRESENT: conjunctiva pink. ABSENT: scleral icterus Mouth exam: PRESENT: moist, tongue midline Neck exam: ABSENT: JVD Respiratory exam: PRESENT: clear to auscultation dontae. ABSENT: rales, rhonchi, wheezes Cardiovascular exam: PRESENT: RRR. ABSENT: diastolic murmur, rubs, systolic murmur GI/Abdominal exam: PRESENT: normal bowel sounds, soft. ABSENT: distended, guarding, mass, organolmegaly, rebound, tenderness Extremities exam: ABSENT: calf tenderness, clubbing, pedal edema Neurological exam: PRESENT: alert, awake, oriented to person, oriented to place , oriented to time, oriented to situation, CN II-XII grossly intact, motor sensory deficit Psychiatric exam: PRESENT: appropriate affect Skin exam: PRESENT: dry, intact, warm. ABSENT: cyanosis, rash Results Laboratory Results: 10/10/16 04:15 10/13/16 04:31 10/13/16 04:31 Sodium 144.6 Potassium 3.1 L Chloride 106 Carbon Dioxide 27 Anion Gap 12 BUN 10 Creatinine 0.84 Est GFR ( Amer) > 60 Est GFR (Non-Af Amer) > 60 Glucose 95 Calcium 8.2 L Impressions: Head CT 10/09/16 00:00 IMPRESSION: No acute intracranial findings. Mild pansinusitis with small air- fluid levels suggesting an acute inflammatory component. Chest X-Ray 10/11/16 06:00 IMPRESSION: Right lower lobe pneumonia or aspiration. Small pleural effusions. Assessment & Plan - Diagnosis (1) Encephalopathy acute Is this a current diagnosis for this admission?: YesPlan: This has resolved. Most likely secondary to the infection and drug overdose. (2) Pneumonia Qualifiers: Pneumonia type: aspiration pneumonia Aspiration pneumonia type: unspecified Laterality: right Lung location: lower lobe of lung Qualified Code(s): J69.0 - Pneumonitis due to inhalation of food and vomit Is this a current diagnosis for this admission?: Yes (3) Polysubstance overdose Qualifiers: Encounter type: initial encounter Injury intent: undetermined intent Qualified Code(s): T50.904A - Poisoning by unspecified drugs, medicaments and biological substances, undetermined, initial encounter Is this a current diagnosis for this admission?: YesPlan: Patient had a suicide attempt. She has been involuntarily committed. She is stable from medical standpoint to be discharged to psychiatric inpatient whenever bed becomes available. (4) Anemia of chronic disease Is this a current diagnosis for this admission?: Yes (5) Hypokalemia Is this a current diagnosis for this admission?: YesPlan: We'll continue to replace and monitor. (6) Schizophrenia Qualifiers: Schizophrenia type: unspecified Qualified Code(s): F20.9 - Schizophrenia, unspecified Is this a current diagnosis for this admission?: YesPlan: Stable. (7) Hypotension Qualifiers: Hypotension type: unspecified hypotension type Qualified Code(s): I95.9 - Hypotension, unspecified Is this a current diagnosis for this admission?: YesPlan: Resolved. (8) Pansinusitis Qualifiers: Chronicity: unspecified Qualified Code(s): J32.4 - Chronic pansinusitis Is this a current diagnosis for this admission?: YesPlan: Continue with the antibiotics. - Time Time Spent with patient: 25-34 minutes - Inpatient Certification Medical Necessity: Need Close Monitoring Due to Risk of Patient Decompensation - Plan Summary Plan Summary: Patient can be discharged to inpatient psychiatric facility whenever a bed becomes available.
[2016-10-13] MEDS: QUETIAPINE FUMARATE 100 MG TABLET PO SCH (22:09)
[2016-10-13] MEDS: BUSPIRONE HCL 10 MG TABLET PO SCH (22:09)
[2016-10-14] MEDS: CLINDAMYCIN HCL 150 MG CAPSULE PO SCH (05:57)
[2016-10-14 06:44] LABS: ABSOLUTE EOSINOPHILS # (AUTO) 0.2 10^3/uL (0.0-0.6); ABSOLUTE LYMPHOCYTES (AUTO) 2.2 10^3/uL (0.5-4.7); ABSOLUTE MONOCYTES (AUTO) 0.4 10^3/uL (0.1-1.4); ABSOLUTE NEUT (AUTO) 2.5 10^3/uL (1.7-8.2); BASOPHILS % (AUTO) 0.3 % (0-2); EOSINOPHILS % (AUTO) 4.3 % (0-6); HEMATOCRIT 33.5 % (36.0-47.0); HEMOGLOBIN 11.2 g/dL (12.0-15.5); HGB HCT DIFFERENCE 0.1; LYMPHOCYTES % (AUTO) 40.5 % (13-45); MEAN CORPUSCULAR HEMOGLOBIN 27.5 pg (27.0-33.4); MEAN CORPUSCULAR HGB CONC 33.3 g/dL (32.0-36.0); MEAN CORPUSCULAR VOLUME 83 fl (80-97); MONOCYTES % (AUTO) 7.3 % (3-13); RED BLOOD COUNT 4.05 10^6/uL (3.72-5.28); SEGMENTED NEUTROPHILS % (AUTO) 47.6 % (42-78); WHITE BLOOD COUNT 5.3 10^3/uL (4.0-10.5)
[2016-10-14 07:18] LABS: ANION GAP 12 (5-19); BLOOD UREA NITROGEN 10 mg/dL (7-20); CALCIUM 8.6 mg/dL (8.4-10.2); CARBON DIOXIDE 26 mmol/L (22-30); CHLORIDE 108 mmol/L (98-107); CREATININE RESULT 0.88 mg/dL (0.52-1.25); GLUCOSE 94 mg/dL (75-110); SODIUM 145.7 mmol/L (137-145)
[2016-10-14 07:19] LABS: POTASSIUM 3.6 mmol/L (3.6-5.0)
[2016-10-14] MEDS: ENOXAPARIN SODIUM INJ 40 MG/0.4 ML DISP.SYRIN SUBCUT SCH (08:08)
[2016-10-14] MEDS: CIPROFLOXACIN HCL 500 MG TABLET PO SCH (09:04)
[2016-10-14] MEDS: DIVALPROEX SODIUM 500 MG TAB.SR.24H PO SCH (09:04)
[2016-10-14] MEDS: POTASSIUM CHLORIDE 10 MEQ TABLET.SA PO SCH (09:04)
[2016-10-14] MEDS: FLUOXETINE HCL 20 MG CAPSULE PO SCH (09:04)
[2016-10-14 10:43] VITALS: BP 106/38
--- NOTE | 2016-10-14 13:06 | PSYCHOLOGICAL NOTE ---
Psych Note - Psych Note Psych Note: Plan of care was coordinated via mental health case management rn (MAGDALENO) and the [facility] as well as the patient's adult son. Patient's adult son will present bedside to assist the patient home and in sure she has her medications in which will be properly monitored by her . Services have been coordinated with the [facility] suicide oil and gas specialist, Mr. Rae From October 19 as well as with her psychiatrist this October 16. Please see mental health case note for additional information.
--- NOTE | 2016-10-14 18:02 | PDOC DISCHARGE SUMMARY ---
General - Admit/Disc Date/PCP Admission Date/Primary Care Provider: 10/09/16 02:33 Discharge Date: 10/14/16 - Discharge Diagnosis (1) Encephalopathy acute Is this a current diagnosis for this admission?: YesSummary: Secondary to pneumonia and medication overdose. (2) Pneumonia Is this a current diagnosis for this admission?: YesSummary: Secondary to aspiration pneumonia. (3) Polysubstance overdose Is this a current diagnosis for this admission?: YesSummary: Initially a suicidal gesture. Cleared by psychiatry that she is no longer at risk for suicide. (4) Anemia of chronic disease Is this a current diagnosis for this admission?: Yes (5) Hypokalemia Is this a current diagnosis for this admission?: Yes (6) Schizophrenia Is this a current diagnosis for this admission?: Yes (7) Hypotension Is this a current diagnosis for this admission?: Yes (8) Pansinusitis Is this a current diagnosis for this admission?: Yes - Additional Information Resuscitation Status: Full Code Discharge Diet: Regular Discharge Activity: Activity As Tolerated, Balance Activity w/Rest Home Medications: Divalproex Sodium [Divalproex Sodium ER] 1,000 mg PO QPM 10/09/16 Fluoxetine HCl [Prozac 20 mg Capsule] 60 mg PO DAILY 10/09/16 Duncan-3 Fatty Acids/Fish Oil [Fish Oil 1,000 mg Capsule] 1 each PO BID 10/09/16 Propranolol HCl [Inderal 40 mg Tablet] 40 mg PO Q12 10/09/16 Quetiapine Fumarate [Seroquel] 200 mg PO DAILY 10/09/16 Quetiapine Fumarate [Seroquel] 600 mg PO QHS 10/09/16 Ranitidine HCl [Zantac 150 mg Tablet] 150 mg PO BIDP PRN 10/09/16 Venlafaxine HCl [Effexor] 100 mg PO DAILY 10/09/16 Venlafaxine HCl [Effexor] 200 mg PO QHS 10/09/16 Ciprofloxacin HCl [Cipro 500 mg Tablet] 500 mg PO BID #22 tablet 10/11/16 Clindamycin HCl 300 mg PO Q6H #44 capsule 10/11/16 History of Present Illness History of Present Illness: YUE CHANDLER is a 55 year old female who presented to emergency room with somnolence after taking extra of her medications. Patient was given Narcan with minimal improvement. She was relatively hypotensive when she presented to emergency room was given IV fluids and admitted for further workup. Hospital Course Hospital Course: 55-year-old with a history of mental illness who presented with somnolence and hypotension. Patient was found to have taken extra medications. She also was noted have aspiration pneumonia. Patient was treated IV fluids and IV antibiotics and her blood pressure improved. The patient was felt to have aspiration pneumonia. The patient was initially involuntarily committed because of voicing suicidal ideations. The patient however had resolution of this and psychiatry felt that she was no longer a threat to herself. Because of that she was discharged home on oral antibiotics to complete for her pneumonia treatment. Physical Exam Vital Signs: Temp Pulse Resp BP Pulse Ox 97.7 F 63 12 137/76 H 95 10/14/16 10:32 10/14/16 10:32 10/14/16 10:32 10/14/16 10:32 10/14/16 10:32 Intake & Output 10/13/16 10/14/16 10/15/16 06:59 06:59 06:59 Intake Total 525 1452 Output Total 1300 1300 Balance -775 152 General appearance: PRESENT: no acute distress Eye exam: PRESENT: conjunctiva pink. ABSENT: scleral icterus Mouth exam: PRESENT: moist, tongue midline Neck exam: ABSENT: JVD Respiratory exam: PRESENT: clear to auscultation dontae. ABSENT: rales, rhonchi, wheezes Cardiovascular exam: PRESENT: RRR. ABSENT: diastolic murmur, rubs, systolic murmur GI/Abdominal exam: PRESENT: normal bowel sounds, soft. ABSENT: distended, guarding, mass, organolmegaly, rebound, tenderness Extremities exam: ABSENT: calf tenderness, clubbing, pedal edema Neurological exam: PRESENT: alert, awake, oriented to person, oriented to place , oriented to time, oriented to situation, CN II-XII grossly intact. ABSENT: motor sensory deficit Psychiatric exam: PRESENT: appropriate affect Skin exam: PRESENT: dry, intact, warm. ABSENT: cyanosis, rash Results Laboratory Results: 10/14/16 05:57 10/14/16 05:57 10/14/16 10/14/16 05:57 05:57 WBC 5.3 RBC 4.05 Hgb 11.2 L Hct 33.5 L MCV 83 MCH 27.5 MCHC 33.3 RDW 14.0 Plt Count 200 Seg Neutrophils % 47.6 Lymphocytes % 40.5 Monocytes % 7.3 Eosinophils % 4.3 Basophils % 0.3 Absolute Neutrophils 2.5 Absolute Lymphocytes 2.2 Absolute Monocytes 0.4 Absolute Eosinophils 0.2 Absolute Basophils 0.0 Sodium 145.7 H Potassium 3.6 Chloride 108 H Carbon Dioxide 26 Anion Gap 12 BUN 10 Creatinine 0.88 Est GFR ( Amer) > 60 Est GFR (Non-Af Amer) > 60 Glucose 94 Calcium 8.6 Impressions: Head CT 10/09/16 00:00 IMPRESSION: No acute intracranial findings. Mild pansinusitis with small air- fluid levels suggesting an acute inflammatory component. Chest X-Ray 10/11/16 06:00 IMPRESSION: Right lower lobe pneumonia or aspiration. Small pleural effusions. Qualifiers PATEINT BEING DISCHARGED WITH ANY OF THE FOLLOWING DIAGNOSIS?: No Plan Discharge Plan: she is discharged home in stable condition. Time Spent: Greater than 30 Minutes
== END 2016-10-14 14:26 | disposition home or self-care (01) | DRG 917 ==
LOC: ER 21:49 → EH 10-09 02:07 → UNDOADMIN 10-09 02:07 → EH 10-09 02:33 → ICU 10-09 04:03 → 4N 10-12 17:19
PROVIDERS: ADMIT Family Medicine; ATTEND Family Medicine
PROC: 05HQ33Z Insertion of Infusion Device into Left External Jugular Vein, Percutaneous Approach (ICD-10-PCS; principal; 2016-10-09)
DX: T65.92XA Toxic effect of unspecified substance, intentional self-harm, initial encounter (principal); J69.0 Pneumonitis due to inhalation of food and vomit; G92 Toxic encephalopathy; N39.0 Urinary tract infection, site not specified; J01.40 Acute pansinusitis, unspecified; Z88.0 Allergy status to penicillin; I95.9 Hypotension, unspecified; F20.9 Schizophrenia, unspecified; E83.51 Hypocalcemia; E83.42 Hypomagnesemia; E87.6 Hypokalemia; D64.9 Anemia, unspecified; Z78.1 Physical restraint status; Y92.9 Unspecified place or not applicable; Z79.899 Other long term (current) drug therapy
CPT/HCPCS: 36415; 51702; 70450; 71010; 71020; 80048; 80053; 80307; 81001; 82040; 82140; 82550; 82553; 82803; 82962; 83605; 83735; 84100; 84443; 84484; 85025; 85027; 87040; 87086; 87493; 93005; 93010; 96365; 96366; 96368; 96375; 96376; 99291; J0610; J0743; J0744; J1630; J1650; J2250; J3360; J3475; J3480; J3490; J7030; J7120